=== PATIENT | female | born 1995 ===

== ENCOUNTER 2017-06-04 20:55 | Emergency (ER) | payer OTHER ==
[~2017-06-04] VITALS: Ht 165.1 cm; Wt 47.6 kg
== END 2017-06-04 23:01 | disposition home or self-care (01) ==
LOC: ER 20:55
DX: T78.1XXA Other adverse food reactions, not elsewhere classified, initial encounter (principal); R21 Rash and other nonspecific skin eruption

== ENCOUNTER 2018-06-15 10:22 | Emergency (ER) | payer OTHER ==
[~2018-06-15] VITALS: Ht 165.1 cm; Wt 68.0 kg
== END 2018-06-15 14:49 | disposition home or self-care (01) ==
LOC: ER 10:22
DX: B34.9 Viral infection, unspecified (principal); K29.70 Gastritis, unspecified, without bleeding

== ENCOUNTER 2019-05-26 02:53 | Emergency (ER) | payer OTHER ==
[~2019-05-26] VITALS: Ht 165.1 cm; Wt 72.6 kg
[2019-05-26] MEDS ORDERED: DUI500 PO (05:39)
== END 2019-05-26 05:42 ==
LOC: ER 02:53
DX: N61.1 Abscess of the breast and nipple (principal)

== ENCOUNTER 2019-06-14 22:26 | Emergency (ER) | payer OTHER ==
[~2019-06-14] VITALS: Ht 165.1 cm; Wt 72.6 kg
[~2019-06-14 22:26] MED LIST: DUI500 PO
[2019-06-15] MEDS ORDERED: CLEOCIN HCL300 MG PO (01:13)
[2019-06-15] MEDS ORDERED: CENTANY30 GM NASAL (01:13)
== END 2019-06-15 01:25 | disposition home or self-care (01) ==
LOC: ER 22:26
DX: L02.415 Cutaneous abscess of right lower limb (principal)

== ENCOUNTER 2021-04-25 23:23 | Emergency (ER) | payer OTHER ==
[~2021-04-25] VITALS: Ht 165.1 cm; Wt 77.1 kg
[~2021-04-25 23:23] MED LIST changes: +CENTANY30 GM NASAL; +CLEOCIN HCL300 MG PO
[2021-04-26] MEDS ORDERED: BENADRYL25 MG PO (03:41)
[2021-04-26] MEDS ORDERED: MEDROL8 MG PO (03:41)
[2021-04-26] MEDS ORDERED: DUI500 PO (03:41)
== END 2021-04-26 03:54 ==
LOC: ER 23:23
DX: J06.9 Acute upper respiratory infection, unspecified (principal); T78.3XXA Angioneurotic edema, initial encounter; Z03.818 Encounter for observation for suspected exposure to other biological agents ruled out